=== PATIENT | female | born 1960 | race African-American/Black ===

== ENCOUNTER 2016-07-05 23:46 | Emergency (ER) | payer OTHER ==
[~2016-07-05] VITALS: Ht 167.6 cm; Wt 72.6 kg
[2016-07-06] MEDS ORDERED: AMOX/CLAVULANATE 875 MG TABLET ONE (00:12)
[2016-07-06] MEDS ORDERED: TDAP [DIPH/PERTUSSIS/TET] 0.5 ML VIAL IM ONE ×2 (00:13→00:30)
[2016-07-06] MEDS ORDERED: AMOX/CLAVULANATE 875 MG TABLET PO ONE (00:30)
[2016-07-06 01:25] VITALS: BP 120/68
== END 2016-07-06 01:26 | disposition home or self-care (01) ==
LOC: ER 23:46
DX: S09.90XA Unspecified injury of head, initial encounter (principal); T63.301A Toxic effect of unspecified spider venom, accidental (unintentional), initial encounter; F17.200 Nicotine dependence, unspecified, uncomplicated; Z98.890 Other specified postprocedural states; Y08.89XA Assault by other specified means, initial encounter; Y93.89 Activity, other specified; Y92.89 Other specified places as the place of occurrence of the external cause; Y99.8 Other external cause status
CPT/HCPCS: 70450; 90471; 90715; 99284; A4606; Z7610

== ENCOUNTER 2016-08-09 04:12 | Emergency (ER) | payer OTHER ==
[~2016-08-09] VITALS: Ht 170.2 cm; Wt 68.0 kg
[2016-08-09 04:20] VITALS: BP 127/80
== END 2016-08-09 06:19 | disposition home or self-care (01) ==
LOC: ER 04:14
DX: L73.9 Follicular disorder, unspecified (principal); F17.200 Nicotine dependence, unspecified, uncomplicated; Z98.890 Other specified postprocedural states
CPT/HCPCS: 99283; A4606; Z7610

== ENCOUNTER 2017-02-19 04:26 | Emergency (ER) | payer OTHER ==
[~2017-02-19] VITALS: Ht 170.2 cm; Wt 65.8 kg
[2017-02-19 04:34] VITALS: BP 115/85
[2017-02-19] MEDS ORDERED: BUPIVACAINE 0.5 % PF 150 MG/30 ML VIAL ONE (04:54)
[2017-02-19] MEDS ORDERED: SULFAMETH/TRIMETH 800/160 MG 1 UDTAB TABLET PO ONE ×2 (05:00→05:21)
[2017-02-19] MEDS ORDERED: CEPHALEXIN MONOHYDRATE 500 MG CAPSULE PO ONE ×2 (05:00→05:21)
[2017-02-19] MEDS ORDERED: TDAP [DIPH/PERTUSSIS/TET] 0.5 ML VIAL IM ONE ×2 (05:00→05:21)
[2017-02-19] MEDS ORDERED: ACETAMINOPHEN ES 500 MG TABLET ONE (05:21)
[2017-02-19] MEDS ORDERED: ACETAMINOPHEN 325 MG TABLET PO ONE (05:30)
== END 2017-02-19 05:32 | disposition home or self-care (01) ==
LOC: ER 04:30
DX: L03.113 Cellulitis of right upper limb (principal); F17.200 Nicotine dependence, unspecified, uncomplicated; Z98.890 Other specified postprocedural states
CPT/HCPCS: 10060; 90471; 90715; 99284; A6402; J3490; A4606; Z7610

== ENCOUNTER 2017-10-29 12:51 | Emergency (ER) | payer OTHER ==
[~2017-10-29] VITALS: Ht 167.6 cm; Wt 78.0 kg
[2017-10-29 12:51] VITALS: BP 112/78
== END 2017-10-29 13:48 | disposition home or self-care (01) ==
LOC: ER 12:52
DX: L03.114 Cellulitis of left upper limb (principal); F17.200 Nicotine dependence, unspecified, uncomplicated; Z98.890 Other specified postprocedural states
CPT/HCPCS: 99283; A4606; Z7610

== ENCOUNTER 2018-01-31 23:03 | Emergency (ER) | payer BC, OTHER ==
[~2018-01-31] VITALS: Ht 167.6 cm; Wt 80.7 kg
[2018-01-31 23:36] VITALS: BP 120/94
[2018-02-01] MEDS ORDERED: ONDANSETRON 4 MG TAB.RAPDIS SL ONE
[2018-02-01] MEDS ORDERED: predniSONE 20 MG TABLET PO ONE
[2018-02-01] MEDS ORDERED: IBUPROFEN 400 MG TABLET PO ONE
[2018-02-01] MEDS ORDERED: predniSONE 20 MG TABLET ONE
[2018-02-01] MEDS ORDERED: IBUPROFEN 400 MG TABLET ONE
[2018-02-01] MEDS ORDERED: ONDANSETRON 4 MG TAB.RAPDIS ONE (00:01)
== END 2018-02-01 00:41 | disposition home or self-care (01) ==
LOC: ER 23:10
DX: J40 Bronchitis, not specified as acute or chronic (principal); R11.2 Nausea with vomiting, unspecified; F17.200 Nicotine dependence, unspecified, uncomplicated; Z98.890 Other specified postprocedural states; Z71.6 Tobacco abuse counseling
CPT/HCPCS: 71045-TC; A4606; Q0162; Z7610